=== PATIENT | female | born 1985 | race Two or more races ===

== ENCOUNTER 2024-02-24 14:55 | Outpatient (CLI) | payer OTHER | END 2024-02-24 15:53 | disposition home or self-care (01) | LOC: NST 14:55 | PROVIDERS: ATTEND Obstetrics & Gynecology | DX: Z34.83 Encounter for supervision of other normal pregnancy, third trimester (principal) ==

== ENCOUNTER 2024-03-02 13:45 | Inpatient (IN) | payer OTHER ==
[~2024-03-02] VITALS: Ht 160 cm; Wt 3.6 kg
[2024-03-07 16:41] VITALS: BP 123/80
[2024-03-07] MEDS ORDERED: AMPICILLIN SODIUM 2,000 MG VIAL ONE (17:30)
[2024-03-07] MEDS ORDERED: PRENATAL TABLE1 EAC1 PO (17:48)
[2024-03-07] MEDS ORDERED: MAGNESIUM100 MG PO (17:48)
[2024-03-07] MEDS ORDERED: PROBIOTIC250 MG PO (17:48)
[2024-03-07] MEDS ORDERED: AMPICILLIN SODIUM 1,000 MG VIAL IV SCH (18:15)
[2024-03-07] MEDS ORDERED: AMPICILLIN SODIUM 2,000 MG VIAL IV ONE (18:15)
[2024-03-07 18:27] LABS: HEMATOCRIT 33.4 % (36.0-45.00); HEMOGLOBIN 11.5 g/dL (12.0-15.00); MEAN CELL VOLUME 96.6 fL (80.00-100.00); MEAN CORPUSCULAR HEMOGLOBIN 33.1 pg (27.00-32.0); MEAN CORPUSCULAR HGB CONC 34.3 g/dl (32.0-36.0); PLATELET COUNT 202 K/uL (150-450); RED BLOOD COUNT 3.46 M/uL (4.00-6.00)
[2024-03-07] MEDS ORDERED: MORPHINE SULFATE 4 MG/ML CARTRIDGE IV PRN (18:30)
[2024-03-07] MEDS ORDERED: RINGERS SOLUTION,LACTATED 1,000 ML IV SCH (18:45)
[2024-03-07 18:49] LABS: INR < 0.93; PARTIAL THROMBOPLASTIN TIME 24.8 SECONDS (22.0-34.0); PROTHROMBIN TIME 9.9 SECONDS (9.0-11.5)
[2024-03-07 18:54] LABS: ALBUMIN 2.8 gm/dL (3.4-5.0); BILIRUBIN TOTAL 0.28 mg/dL (0.3-1.2); CREATININE SERUM 0.74 mg/dL (0.55-1.02); GFR 87.37; GLOBULINA 3.3 G/DL (2.4-3.5); POTASSIUM 4.08 mEq/L (3.5-5.1); TOTAL PROTEIN 6.1 gm/dL (6.4-8.2)
[2024-03-07] MEDS ORDERED: MISOPROSTOL 25 MCG TABLET ONE (19:16)
[2024-03-07 19:49] VITALS: BP 118/74; BP 135/84
[2024-03-07 19:51] VITALS: BP 118/74
[2024-03-07 22:35] VITALS: BP 120/66
[2024-03-08] VITALS: BP 99/65
[2024-03-08 05:00] VITALS: BP 110/73
[2024-03-08 07:40] VITALS: BP 132/77
[2024-03-08] MEDS ORDERED: OXYTOCIN 500 ML IV ONE (07:45)
[2024-03-08 10:20] VITALS: BP 138/73
[2024-03-08] MEDS ORDERED: MORPHINE SULFATE 4 MG/ML CARTRIDGE IV ONE (11:45)
[2024-03-08] MEDS ORDERED: ERYTHROMYCIN BASE OPHT 1GM EACH TUBE OP ONE ×2 (12:56→15:00)
[2024-03-08] MEDS ORDERED: OXYTOCIN 10 UNITS/ML VIAL ONE (12:56)
[2024-03-08] MEDS ORDERED: CEFAZOLIN SODIUM 1,000 MG VIAL ONE (13:00)
[2024-03-08] MEDS ORDERED: CITRIC ACID/SODIUM CITRATE 30 ML BLIST.PACK PO ONE (13:01)
[2024-03-08] MEDS ORDERED: CITRIC ACID/SODIUM CITRATE 30 ML BLIST.PACK PO SCH (13:15)
[2024-03-08] MEDS ORDERED: CEFAZOLIN SODIUM 1,000 MG VIAL IV ONE (13:15)
[2024-03-08] MEDS ORDERED: RINGERS SOLUTION,LACTATED 1,000 ML IV SCH (13:30)
[2024-03-08] MEDS ORDERED: OXYTOCIN 1,000 ML IV ONE (13:30)
[2024-03-08] MEDS ORDERED: MORPHINE SULFATE 4 MG/ML CARTRIDGE IV PRN (13:30)
[2024-03-08] MEDS ORDERED: KETOROLAC TROMETHAMINE 30 MG VIAL IV SCH (14:00)
[2024-03-08] MEDS ORDERED: OXYTOCIN 10 UNITS/ML VIAL IV ONE (15:00)
[2024-03-08] MEDS ORDERED: MORPHINE SULFATE 4 MG/ML VIAL IV ONE (15:45)
[2024-03-08] MEDS ORDERED: SIMETHICONE 125 MG CAPSULE PO SCH (17:00)
[2024-03-08] MEDS ORDERED: GABAPENTIN 300 MG CAPSULE PO SCH (17:00)
[2024-03-08] MEDS ORDERED: GABAPENTIN 300 MG CAPSULE PO ONE (17:20)
[2024-03-08] MEDS ORDERED: SIMETHICONE 125 MG CAPSULE PO ONE (17:20)
[2024-03-08] MEDS ORDERED: KETOROLAC TROMETHAMINE 30 MG VIAL ONE (17:21)
[2024-03-08] MEDS ORDERED: ACETAMINOPHEN 500 MG GEL..CAP PO SCH (18:00)
[2024-03-08] MEDS ORDERED: ONDANSETRON HCL 2 MG/ML VIAL IV SCH (18:00)
[2024-03-08 21:56] VITALS: BP 130/76
[2024-03-09] VITALS: BP 115/73
[2024-03-09 04:30] VITALS: BP 120/82
[2024-03-09 06:55] LABS: HEMATOCRIT 31.1 % (36.0-45.00); HEMOGLOBIN 10.8 g/dL (12.0-15.00); MEAN CELL VOLUME 95.6 fL (80.00-100.00); MEAN CORPUSCULAR HEMOGLOBIN 33.2 pg (27.00-32.0); MEAN CORPUSCULAR HGB CONC 34.7 g/dl (32.0-36.0); PLATELET COUNT 187 K/uL (150-450); RED BLOOD COUNT 3.25 M/uL (4.00-6.00); RED CELL DISTRIBUTION WIDTH 14.9 % (11.5-14.5)
[2024-03-09] MEDS ORDERED: KETOROLAC TROMETHAMINE 10 MG TABLET PO SCH (08:00)
[2024-03-09] MEDS ORDERED: OxyCODONE HCL 5 MG TABLET (ROXICODONE) PO PRN (08:00)
[2024-03-09] MEDS ORDERED: DOCUSATE SODIUM 100MG CAP PO SCH (09:00)
[2024-03-09 09:23] VITALS: BP 128/86
[2024-03-09 16:57] VITALS: BP 119/73
[2024-03-09 20:22] VITALS: BP 117/77
[2024-03-10] VITALS: BP 126/76
[2024-03-10 07:56] VITALS: BP 117/74
[2024-03-10] MEDS ORDERED: BISACODYL 10 MG/SUPP.RECT SUPP.RECT RECTAL NR (09:00)
[2024-03-10 18:21] VITALS: BP 120/61
[2024-03-11] VITALS: BP 131/85
[2024-03-11 07:48] VITALS: BP 114/80
[2024-03-11] MEDS ORDERED: KETO10TA2 PO (09:14)
[2024-03-11] MEDS ORDERED: PERCOCET 5-3251 EACH PO (09:14)
== END 2024-03-11 14:42 | disposition home or self-care (01) | DRG 788 ==
LOC: LDR 03-07 16:28 → O/R 03-08 13:26 → OB/GYN 03-08 13:41 → LDR 03-10 13:45 → OB/GYN 03-11 14:42
PROVIDERS: Obstetrics & Gynecology; ADMIT Obstetrics & Gynecology; ATTEND Obstetrics & Gynecology
PROC: 3E033VJ Introduction of Other Hormone into Peripheral Vein, Percutaneous Approach (ICD-10-PCS; 2024-03-07)
PROC: 4A1HXCZ Monitoring of Products of Conception, Cardiac Rate, External Approach (ICD-10-PCS; 2024-03-07)
PROC: 10D00Z1 Extraction of Products of Conception, Low, Open Approach (ICD-10-PCS; principal; 2024-03-08 13:45)
DX: O61.0 Failed medical induction of labor (principal); O99.824 Streptococcus B carrier state complicating childbirth; Z3A.40 40 weeks gestation of pregnancy; Z37.0 Single live birth; Z20.822 Contact with and (suspected) exposure to COVID-19

== ENCOUNTER 2024-03-06 09:02 | Outpatient (CLI) | payer OTHER ==
[2024-03-07] MEDS ORDERED: MAGNESIUM100 MG PO (17:48)
[2024-03-07] MEDS ORDERED: PROBIOTIC250 MG PO (17:48)
[2024-03-07] MEDS ORDERED: PRENATAL TABLE1 EAC1 PO (17:48)
== END 2024-03-06 10:10 | disposition home or self-care (01) ==
LOC: NST 09:02
PROVIDERS: ATTEND Obstetrics & Gynecology Maternal & Fetal Medicine
DX: Z34.83 Encounter for supervision of other normal pregnancy, third trimester (principal)